=== PATIENT | female | born 1970 | race Hispanic/Latino ===

== ENCOUNTER → 2025-01-11 | Outpatient (REF) | payer OTHER ==
[~2025-01-11] MED LIST: AMLODIPINE BESYL5 MG PO; ATORVASTATIN CA10 MG PO; HYDROCHLOROTHIA25 MG; METFORMIN HCL500 MG PO
== END ==
LOC: MRI 14:37
PROVIDERS: ATTEND Orthopaedic Surgery Adult Reconstructive Orthopaedic Surgery
DX: S83.242A Other tear of medial meniscus, current injury, left knee, initial encounter (principal)